=== PATIENT | male | born 1975 | race Caucasian/White ===

== ENCOUNTER 2022-08-06 21:23 | Inpatient (IN) ==
--- NOTE | 2022-08-06 22:00 | Emergency Department Note ---
Impression & Plan Suicidal ideation, Alcohol abuse, Hypokalemia, Hypertension ED Provider Note NAME: MARTHA MEJIA Jr AGE: 47 SEX: M : 1975 ARRIVES VIA: Walk-In INFORMANT: [Patient][family] ED PROVIDER(S): [Isai Trammell MD] CHIEF COMPLAINT: Mental health evaluation HISTORY OF PRESENT ILLNESS: Patient is a 47-year-old male who presents to the ED for a mental health evaluation. The patient has been feeling overwhelmed and depressed. He recently found out that he will eventually lose his vision. He feels helpless. He has had issues with his family, he feels his family no longer loves him. The patient typically drinks about 6 beers a day, he did have at least 6 today and feels slightly intoxicated with alcohol. He had an outburst today and threatened to kill himself as well as the dog. Patient did try to jump out of a vehicle at [address] way here, his grabbed his arm and kept him in the vehicle. The patient was started on Zoloft 3 weeks ago. This was added to his Effexor. He has not yet seen a psychiatrist. He has never been hospitalized for depression or anxiety. He is currently cooperative but does not feel he needs to stay in the hospital for mental health care. He believes he needs to care for his alcohol use. PMHx/PSHx: See Below SOCIAL HISTORY: See Below. PHYSICAL EXAM: GENERAL: Patient is in mild distress, anxious but cooperative HEENT: No acute trauma, normocephalic atraumatic, mucous membranes moist, no nasal congestion. NECK: No stridor, no adenopathy, no meningismus, trachea is midline. LUNGS: Clear to auscultation bilaterally, no wheeze, no rhonchi, breath sounds equal. HEART: Mildly tachycardic, regular rhythm, no murmurs. ABDOMEN: Soft, nontender, bowel sounds positive, no peritonitis. EXTREMITIES: No cyanosis or edema, full range of motion of all the joints without pain or difficulty, no signs for acute trauma. NEUROLOGIC: Oriented x 3, no acute motor or sensory deficits, no focal weakness. SKIN: No rash, no jaundice, no diaphoresis. Psychiatric: Cooperative, currently voluntary. Admits to making suicidal comments, admits to trying to get out of the moving car on the way here. DIFFERENTIAL DIAGNOSIS: Mood disorder, suicidality, psychosis, infection, hypoglycemia, electrolyte abnormalities, intracerebral event, toxicologic etiology, trauma, as well as other pathologies. EMERGENCY DEPARTMENT COURSE/PROCEDURES: Prior/Outside records reviewed: None MEDICAL DECISION MAKING: There is no leukocytosis or concerning anemia. There is a normal platelet count. Potassium slightly low at 3. No renal failure. No concerning liver enzyme elevation. The patient appears to be in a euthyroid state. Urinalysis does not show infection. Aspirin and Tylenol levels were undetectable. Urine tox was negative. Alcohol level was somewhat elevated at 81, this is consistent with his alcohol use. COVID test returned negative. On exam, the patient was anxious, he was voluntary. He admitted to some suicidal ideation. He was somewhat hypertensive. He carries a history of hypertension. Patient was felt medically clear. He was seen by psychiatry case management. Patient was given his typical nighttime meds orally. He was given oral potassium as well as some oral Ativan. The Ativan was given for anxiety. The patient has been accepted voluntarily to this [facility] psychiatric floor, 3 S. He has been cooperative during his ED stay. DISPOSITION: The patient is being hospitalized on this hospital's psychiatric floor, his presentation warrants the hospital stay. Past Med/Surg History Medical History Allergic rhinitis Hypertension REM sleep behavior disorder Severe obstructive sleep apnea Surgical History History of vasectomy Family History Other Cancer Diabetes Hypertension Prostate cancer Social History Smoking Status: Never smoker Preferred Language: Divehi marital status: Current Living Situation: Family current occupational status: employed Feels Safe at Home: Yes Gender Identity: Male Allergies Allergies Allergy/AdvReac Type Severity Reaction Status Date / Time Sulfa (Sulfonamide Allergy Unknown Rash Verified 08/06/22 22:57 Antibiotics) Home Meds Home Medications Medication Instructions Recorded Confirmed chlorthalidone 25 mg tablet 25 mg PO HS 03/23/19 08/06/22 enalapril maleate 20 mg tablet 20 mg PO HS 03/23/19 08/06/22 metoprolol succinate 25 mg 25 mg PO HS 03/23/19 08/06/22 tablet,extended release 24 hr venlafaxine 150 mg 150 mg PO HS 03/23/19 08/06/22 capsule,extended release 24 hr clonazepam 0.5 mg tablet (Klonopin) 0.5 mg PO HS 08/06/22 08/06/22 sertraline 50 mg tablet 50 mg PO HS 08/06/22 08/06/22 Results & Data (ED) Vital Signs Vital Signs - 24 hr 08/06/22 21:30 08/07/22 00:03 Temperature 36.7 C Temperature Source Temporal Artery Scan Pulse Rate 112 H Pulse Rate [Finger] 122 H Respiratory Rate 22 17 Respiratory Effort / Characteristics Non-Labored Spontaneous Non-Labored Spontaneous Respiratory Depth Normal Normal Blood Pressure 166/106 H Blood Pressure [Right Arm] 143/102 H Blood Pressure Mean 126 Blood Pressure Mean [Right Arm] 115 Blood Pressure Position Sitting Blood Pressure Position [Right Arm] Sitting Pulse Oximetry 98 99 Oxygen Delivery Method Room Air Room Air Sepsis Recent Fever Within 48 Hours No Sepsis New/Unexplained Change in Mental Status No Sepsis Action Taken by Nursing No Action Required Home Medications Current Medication List: was personally reviewed by me Laboratory Data Attestation: I reviewed the patient's lab results. 08/06/22 22:17 08/06/22 22:17 Lab Results 08/06/22 08/06/22 08/06/22 Range/Units 21:55 21:55 22:00 WBC (4.8-10.8) K/ul RBC (4.63-6.08) M/uL Hgb (14.0-18.0) g/dl Hct (40.1-51.0) % MCV (80.0-100.0) fL MCH (25.0-34.0) pg MCHC (32.0-36.0) g/dL RDW Std Deviation (36.4-46.3) fL RDW Coeff of Symone (11.5-14.5) % Plt Count (130-400) K/uL MPV (9.4-12.4) fL Immature Gran % (Auto) % Neut % (Auto) % Lymph % (Auto) % [place] % (Auto) % Eos % (Auto) % Baso % (Auto) % Neut # (Auto) (1.4-6.5) K/uL Lymph # (Auto) (1.2-3.4) K/uL [place] # (Auto) (0.24-0.82) K/uL Eos # (Auto) (0-0.50) K/uL Baso # (Auto) (0-0.2) K/uL Immature Gran # (Auto) (0.00-0.02) K/uL Sodium (136-145) mmol/L Potassium (3.5-5.1) mmol/L Chloride (98-107) mmol/L Carbon Dioxide (21-32) mmol/L Anion Gap (3-11) BUN (6-23) mg/dl Creatinine (0.6-1.4) mg/dl Est Cr Clr Drug Dosing ml/min Est GFR ( Amer) ml/min Est GFR (Non-Af Amer) ml/min BUN/Creatinine Ratio (10-20) Glucose (70-99(Fasting)) mg/dl Calcium (8.5-10.1) mg/dl Total Bilirubin (0.2-1.0) mg/dl AST (13-39) U/L ALT (7-52) U/L Alkaline Phosphatase (34-104) U/L Total Protein (6.0-8.3) gm/dl Albumin (3.4-5.0) gm/dl Globulin (2.5-4.0) gm/dl Albumin/Globulin Ratio (0.9-2) TSH (0.300-4.500) uIu/ml Urine Color Yellow Urine Appearance Clear (Clear) Urine pH 6.5 (4.5-7.5) Ur Specific [place] 1.004 (1.000-1.030) Urine Protein Negative (Negative) Urine Glucose (UA) Negative (Negative) Urine Ketones Negative (Negative) Urine Blood Negative (Negative) Urine Nitrite Negative (Negative) Urine Bilirubin Negative (Negative) Urine Urobilinogen Negative (Negative) Ur Leukocyte Esterase Negative (Negative) Salicylates (3.0-30) mg/dl Urine Opiates Screen Neg (Neg) Ur Methadone, Qual Neg (Neg) Acetaminophen (10-30) ug/ml Urine Barbiturates Neg (Neg) Ur Phencyclidine (PCP) Neg (Neg) U Amphetamin/Meth Scrn Neg (Neg) MDMA (Ecstasy) Screen Neg (Neg) U Benzodiazepines Scrn Neg (Neg) Ur Cocaine Metabolite Neg (Neg) U Marijuana (THC) Screen Neg (Neg) Ethyl Alcohol mg/dL (<10.0) mg/dl SARS-CoV-2, RNA, NAAT NEGATIVE (NEGATIVE) 08/06/22 08/06/22 08/06/22 Range/Units 22:17 22:17 22:17 WBC 5.62 (4.8-10.8) K/ul RBC 4.68 (4.63-6.08) M/uL Hgb 15.2 (14.0-18.0) g/dl Hct 41.9 (40.1-51.0) % MCV 89.5 (80.0-100.0) fL MCH 32.5 (25.0-34.0) pg MCHC 36.3 H (32.0-36.0) g/dL RDW Std Deviation 41.7 (36.4-46.3) fL RDW Coeff of Symone 12.7 (11.5-14.5) % Plt Count 222 (130-400) K/uL MPV 10.5 (9.4-12.4) fL Immature Gran % (Auto) 1.2 % Neut % (Auto) 66.4 % Lymph % (Auto) 21.9 % [place] % (Auto) 5.5 % Eos % (Auto) 3.4 % Baso % (Auto) 1.6 % Neut # (Auto) 3.73 (1.4-6.5) K/uL Lymph # (Auto) 1.23 (1.2-3.4) K/uL [place] # (Auto) 0.31 (0.24-0.82) K/uL Eos # (Auto) 0.19 (0-0.50) K/uL Baso # (Auto) 0.09 (0-0.2) K/uL Immature Gran # (Auto) 0.07 H (0.00-0.02) K/uL Sodium 136 (136-145) mmol/L Potassium 3.0 L (3.5-5.1) mmol/L Chloride 101 (98-107) mmol/L Carbon Dioxide 25 (21-32) mmol/L Anion Gap 10 (3-11) BUN 14 (6-23) mg/dl Creatinine 0.79 (0.6-1.4) mg/dl Est Cr Clr Drug Dosing 141.5 ml/min Est GFR ( Amer) 123.9 ml/min Est GFR (Non-Af Amer) 106.9 ml/min BUN/Creatinine Ratio 17.7 (10-20) Glucose 117 H (70-99(Fasting)) mg/dl Calcium 9.3 (8.5-10.1) mg/dl Total Bilirubin 0.5 (0.2-1.0) mg/dl AST 24 (13-39) U/L ALT 45 (7-52) U/L Alkaline Phosphatase 34 (34-104) U/L Total Protein 6.7 (6.0-8.3) gm/dl Albumin 4.4 (3.4-5.0) gm/dl Globulin 2.3 L (2.5-4.0) gm/dl Albumin/Globulin Ratio 1.9 (0.9-2) TSH 2.381 (0.300-4.500) uIu/ml Urine Color Urine Appearance (Clear) Urine pH (4.5-7.5) Ur Specific [place] (1.000-1.030) Urine Protein (Negative) Urine Glucose (UA) (Negative) Urine Ketones (Negative) Urine Blood (Negative) Urine Nitrite (Negative) Urine Bilirubin (Negative) Urine Urobilinogen (Negative) Ur Leukocyte Esterase (Negative) Salicylates (3.0-30) mg/dl Urine Opiates Screen (Neg) Ur Methadone, Qual (Neg) Acetaminophen (10-30) ug/ml Urine Barbiturates (Neg) Ur Phencyclidine (PCP) (Neg) U Amphetamin/Meth Scrn (Neg) MDMA (Ecstasy) Screen (Neg) U Benzodiazepines Scrn (Neg) Ur Cocaine Metabolite (Neg) U Marijuana (THC) Screen (Neg) Ethyl Alcohol mg/dL (<10.0) mg/dl SARS-CoV-2, RNA, NAAT (NEGATIVE) 08/06/22 08/06/22 Range/Units 22:17 22:17 WBC (4.8-10.8) K/ul RBC (4.63-6.08) M/uL Hgb (14.0-18.0) g/dl Hct (40.1-51.0) % MCV (80.0-100.0) fL MCH (25.0-34.0) pg MCHC (32.0-36.0) g/dL RDW Std Deviation (36.4-46.3) fL RDW Coeff of Symone (11.5-14.5) % Plt Count (130-400) K/uL MPV (9.4-12.4) fL Immature Gran % (Auto) % Neut % (Auto) % Lymph % (Auto) % [place] % (Auto) % Eos % (Auto) % Baso % (Auto) % Neut # (Auto) (1.4-6.5) K/uL Lymph # (Auto) (1.2-3.4) K/uL [place] # (Auto) (0.24-0.82) K/uL Eos # (Auto) (0-0.50) K/uL Baso # (Auto) (0-0.2) K/uL Immature Gran # (Auto) (0.00-0.02) K/uL Sodium (136-145) mmol/L Potassium (3.5-5.1) mmol/L Chloride (98-107) mmol/L Carbon Dioxide (21-32) mmol/L Anion Gap (3-11) BUN (6-23) mg/dl Creatinine (0.6-1.4) mg/dl Est Cr Clr Drug Dosing ml/min Est GFR ( Amer) ml/min Est GFR (Non-Af Amer) ml/min BUN/Creatinine Ratio (10-20) Glucose (70-99(Fasting)) mg/dl Calcium (8.5-10.1) mg/dl Total Bilirubin (0.2-1.0) mg/dl AST (13-39) U/L ALT (7-52) U/L Alkaline Phosphatase (34-104) U/L Total Protein (6.0-8.3) gm/dl Albumin (3.4-5.0) gm/dl Globulin (2.5-4.0) gm/dl Albumin/Globulin Ratio (0.9-2) TSH (0.300-4.500) uIu/ml Urine Color Urine Appearance (Clear) Urine pH (4.5-7.5) Ur Specific [place] (1.000-1.030) Urine Protein (Negative) Urine Glucose (UA) (Negative) Urine Ketones (Negative) Urine Blood (Negative) Urine Nitrite (Negative) Urine Bilirubin (Negative) Urine Urobilinogen (Negative) Ur Leukocyte Esterase (Negative) Salicylates < 3.0 L (3.0-30) mg/dl Urine Opiates Screen (Neg) Ur Methadone, Qual (Neg) Acetaminophen < 3 L (10-30) ug/ml Urine Barbiturates (Neg) Ur Phencyclidine (PCP) (Neg) U Amphetamin/Meth Scrn (Neg) MDMA (Ecstasy) Screen (Neg) U Benzodiazepines Scrn (Neg) Ur Cocaine Metabolite (Neg) U Marijuana (THC) Screen (Neg) Ethyl Alcohol mg/dL 81.8 H (<10.0) mg/dl SARS-CoV-2, RNA, NAAT (NEGATIVE) Administered Medications Discontinued Medications Chlorthalidone (Chlorthalidone 25 Mg Tab) 25 mg PO NOW STA Stop: 08/06/22 23:26 Last Admin: 08/07/22 00:02 Dose: 25 mg Documented By: CC Enalapril Maleate (Enalapril Maleate 5 Mg Tab) 20 mg PO NOW STA Stop: 08/06/22 23:26 Last Admin: 08/07/22 00:01 Dose: 20 mg Documented By: CC Lorazepam (Lorazepam 1 Mg Tab) 2 mg SL NOW STA Stop: 08/06/22 22:49 Last Admin: 08/06/22 23:13 Dose: 2 mg Documented By: CC Metoprolol Succinate (Metoprolol Succ 25mg Ext Rel Tab) 25 mg PO NOW STA Stop: 08/06/22 23:26 Last Admin: 08/06/22 23:58 Dose: 25 mg Documented By: CC Potassium Chloride (Potassium Chloride Crtab 20 Meq Tabcr) 40 meq PO NOW STA Stop: 08/06/22 23:16 Last Admin: 08/06/22 23:58 Dose: 40 meq Documented By: CC Sertraline HCl (Sertraline Hcl 50 Mg Tablet) 50 mg PO NOW ONE Stop: 08/06/22 23:26 Last Admin: 08/07/22 00:00 Dose: 50 mg Documented By: CC Venlafaxine HCl (Venlafaxine Hcl Xr 150 Mg Capxr) 150 mg PO NOW STA Stop: 08/06/22 22:50 Last Admin: 08/06/22 23:59 Dose: 150 mg Documented By: CC Discharge Plan Visit Data Chief Complaint: Mental Health Evaluation Stated Complaint: MENTAL HEALTH ASSESMENT ED Provider: Isai Trammell Discharge Problem: Suicidal ideation, Alcohol abuse, Hypokalemia, Hypertension Patient Disposition: Admitted As Inpatient Condition: Good Forms Stand Alone Forms: [facility], Suicide Prevention Resources Prescriptions Prescriptions: No Action chlorthalidone 25 mg tablet 25 mg PO HS enalapril maleate 20 mg tablet 20 mg PO HS metoprolol succinate 25 mg tablet extended release 24 hr 25 mg PO HS venlafaxine 150 mg capsule,extended release 24hr 150 mg PO HS sertraline 50 mg tablet 50 mg PO HS clonazepam [Klonopin] 0.5 mg tablet 0.5 mg PO HS Referrals Referrals: Lora Lo [Primary Care Provider] -
[2022-08-06 22:30] LABS: Appearance Urine Clear (Clear); Bilirubin Urine Negative (Negative); Blood Urine Negative (Negative); Color Urine Yellow; Glucose Urine UA Negative (Negative); Ketones Urine Negative (Negative); Leukocyte Esterase Urine Negative (Negative); Nitrite Urine Negative (Negative); Protein Urine Negative (Negative); Specific Gravity Urine 1.004 (1.000-1.030); Urobilinogen Urine Negative (Negative); pH Urine 6.5 (4.5-7.5)
[2022-08-06 22:48] LABS: Amphetamines+Metham, Urine Neg (Neg); Barbiturates, Urine Neg (Neg); Benzodiazepine, Urine Neg (Neg); Cocaine, Urine Neg (Neg); MDMA (Ecstacy), Urine Neg (Neg); Methadone, Urine Neg (Neg); Opiate, Urine Neg (Neg); Phencyclidine, Urine Neg (Neg)
[2022-08-06] MEDS ORDERED: LORazepam 1 MG TAB SL STA (22:48)
[2022-08-06] MEDS ORDERED: VENLAFAXINE HCL XR 150 MG CAPXR PO STA (22:49)
[2022-08-06 22:51] LABS: Basophils # (auto) 0.09 K/uL (0-0.2); Basophils % (auto) 1.6 %; Eosinophils # (auto) 0.19 K/uL (0-0.50); Eosinophils % (auto) 3.4 %; Hematocrit (blood only) 41.9 % (40.1-51.0); Hemoglobin 15.2 g/dl (14.0-18.0); Immature Granulocytes # (auto) 0.07 K/uL (0.00-0.02); Immature Granulocytes % (auto) 1.2 %; Lymphocytes # (auto) 1.23 K/uL (1.2-3.4); Lymphocytes % (auto) 21.9 %; Mean Corpuscular Hemoglobin 32.5 pg (25.0-34.0); Mean Corpuscular Hgb Conc 36.3 g/dL (32.0-36.0); Mean Corpuscular Volume 89.5 fL (80.0-100.0); Mean Platelet Volume 10.5 fL (9.4-12.4); Monocytes # (auto) 0.31 K/uL (0.24-0.82); Monocytes % (auto) 5.5 %; Neutrophils # (auto) 3.73 K/uL (1.4-6.5); Neutrophils % (auto) 66.4 %; Platelet Count 222 K/uL (130-400); RDW Coefficient of Variation 12.7 % (11.5-14.5); RDW Standard Deviation 41.7 fL (36.4-46.3); Red Blood Count 4.68 M/uL (4.63-6.08); White Blood Count 5.62 K/ul (4.8-10.8)
[2022-08-06 23:13] LABS: Albumin Globulin Ratio 1.9 (0.9-2); Albumin Level 4.4 gm/dl (3.4-5.0); BUN Creatinine Ratio 17.7 (10-20); Bilirubin,Total 0.5 mg/dl (0.2-1.0); Calcium 9.3 mg/dl (8.5-10.1); Creatinine Clr Calc Pharmacy 141.5 ml/min; Est GFR (African American) 123.9 ml/min; Est GFR (Non-African American) 106.9 ml/min; Globulin 2.3 gm/dl (2.5-4.0); Total Protein 6.7 gm/dl (6.0-8.3)
[2022-08-06] MEDS ORDERED: POTASSIUM CHLORIDE CRTAB 20 MEQ TABCR PO STA (23:15)
[2022-08-06 23:19] LABS: Acetaminophen < 3 ug/ml (10-30); Salicylate < 3.0 mg/dl (3.0-30)
[2022-08-06] MEDS ORDERED: SERTRALINE HCL 50 MG TABLET PO ONE (23:25)
[2022-08-06] MEDS ORDERED: METOPROLOL SUCC 25MG EXT REL TAB PO STA (23:25)
[2022-08-06] MEDS ORDERED: CHLORTHALIDONE 25 MG TAB PO STA (23:25)
[2022-08-06] MEDS ORDERED: ENALAPRIL MALEATE 5 MG TAB PO STA (23:25)
[2022-08-07] MEDS ORDERED: SODIUM CHLORIDE 0.65% NA SOLN 45 ML (OCEAN) PRN (02:08)
[2022-08-07] MEDS ORDERED: ACETAMINOPHEN 325 MG TAB PO PRN (02:08)
[2022-08-07] MEDS ORDERED: BISMUTH SUBSALICYLATE LIQD 236 ML PO PRN (02:08)
[2022-08-07] MEDS ORDERED: hydrOXYzine HCl 25 MG TAB PO PRN (02:08)
[2022-08-07] MEDS ORDERED: MAGNESIUM HYDROXIDE SUSP 30 ML UDC PO PRN (02:08)
[2022-08-07] MEDS ORDERED: ALUMINUM/MAGNESIUM SUSP 30 ML UDC PO PRN (02:08)
[2022-08-07] MEDS ORDERED: Ativan PO Alcohol Withdrawal--Active Protocol PO PRN ×2 (02:08→11:11)
[2022-08-07] MEDS ORDERED: LORAZEPAM 1MG TAB ACTIVE PROTOCOL PO PRN (03:00)
[2022-08-07] MEDS ORDERED: LORAZEPAM 1MG TAB AT RISK PROTOCOL PO PRN (03:00)
[2022-08-07] MEDS ORDERED: THIAMINE HCL 100 MG TAB PO SCH (09:00)
[2022-08-07] MEDS ORDERED: FOLIC ACID 1 MG TAB PO SCH (09:00)
[2022-08-07] MEDS ORDERED: LORazepam 1 MG TAB PO PRN ×3 (11:11)
[2022-08-07] MEDS ORDERED: LORazepam 1 MG TAB ONE (11:16)
[2022-08-07] MEDS ORDERED: cloNIDine HCL 0.1 MG TAB PO ONE (13:53)
[2022-08-07] MEDS: SODIUM CHLORIDE 5% OP SOLN 15 ML BTL OP SCH ×2 (14:08→21:18)
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
[2022-08-07] MEDS ORDERED: VENLAFAXINE HCL XR 150 MG CAPXR PO SCH (17:15)
[2022-08-07] MEDS: clonazePAM 0.5 MG TAB PO SCH (21:16)
[2022-08-07] MEDS: ENALAPRIL MALEATE 10 MG TAB PO SCH (21:17)
[2022-08-07] MEDS: CHLORTHALIDONE 25 MG TAB PO SCH (21:17)
[2022-08-07] MEDS ORDERED: METOPROLOL SUCC 25MG EXT REL TAB PO SCH (22:00)
[2022-08-08] MEDS: SODIUM CHLORIDE 5% OP SOLN 15 ML BTL OP SCH ×3 (08:53→21:38)
[2022-08-08] MEDS: hydrOXYzine HCl 25 MG TAB PO PRN (10:20)
[2022-08-08] MEDS ORDERED: METOPROLOL TARTRATE 25 MG TAB PO ONE (16:27)
--- NOTE | 2022-08-08 16:34 | Psychiatric Progress Note ---
Date of Service August 08, 2022 Impression / Recommendations Impression 47 yo male with hx of sleep disorders, anxiety, self-medicating with ETOH, likely dependence, presents denying SI following significant outburst at home with threats to harm self/jump from car. Behaviors seem to have escalated during period of increased Etoh use and addition of SSRI which could suggest disinhibition. reports significant worsening of his condition when started Zoloft. 08/08/2022: improved sleep, only tachy/hypertension (1) Major depression: (2) Alcohol abuse: (3) Hypertension: (4) REM sleep behavior disorder: (5) Periodic limb movement disorder: (6) Severe obstructive sleep apnea: Plan 08/08/2022: patient agrees to titrate metoprolol as beta blockers as a class helpful for anxiety/tachy, continue shift Effexor XR toward lunch then am. 08/07/2022: The patient was admitted to the [facility] ([facility]) on q15 min checks (behavioral with suicide precautions) for safety. The patient will participate in group, recreational, and milieu therapies and will be offered additional individual and family sessions as clinically appropriate. K+ was repleted in ED. AWSS procotol with prn Ativan, consider Neurontin loading. Patient has HTN at baseline and doesn't appear to be progressing with withdrawal, some improvement following 1 time dose of clonidine. Will continue Klonopin as for sleep related disorder though expressed to patient that I would suggest trial of shifting his dose of Effexor XR as antidepressants can disrupt sleep stages. He was agreeable to this, hasn't taken higher dose of Effexor and is ambivalent re: it given significant discontinuation syndrome. He is agreeable to referral to outpatient dual dx IOP. Suicide Risk Level Suicide Risk Level: Moderate (q15 min suicide checks) Risk Factors Assessment Male: Yes : Yes Do You Have Access To A Gun?: Yes (has guns in safe, but there is access) Health Problems: Yes Mental Health Diagnoses: Yes Substance Use Disorders: Yes Previous Attempt: No Previous Psychiatric Hospitalization: No Protective Factors Assessment : Yes Responsible for Young Children: Yes Employed: No (unable to work d/t vision loss) Supportive Family: Yes Interval History Identifying Information MARTHA MEJIA is a 47-year-old M who currently lives in [place], no prior admissions, and was admitted on 08/07/22 02:08 on a 201 voluntary commitment for threats to harm self/others. Chief Complaint "yeah i feel internally anxious but not like I'm withdrawaling". Review of Systems Sleep Information Total Hours of Sleep: 8.25 Sleep Comments: Admitted overnight Meal Information Percent Meal Consumed - Breakfast: 100 Percent Meal Consumed - Lunch: 100 Percent Meal Consumed - Dinner: 100 Subjective Subjective Patient was seen & assessed and interval progress reviewed with treatment team. BP is chronically elevated at baseline. Still monitoring with AWSS. He reports sleeping very well last pm, even without CPAP. He is reading rather than therapeutic rec this pm but milieu is predominately young and female. He reports that groups are going well regardless. He is appreciative of care. Physical Exam Psychiatric Orientation: alert and oriented x 3 Apperance: appropriately dressed and appropriately groomed Eye Contact: good eye contact Motor Behavior: no abnormal motor movements Speech: normal rate/rhythm/volume of speech Affect: + depressed affect Mood: + depressed mood Thought Process: goal directed thought process Thought Content: reality based without delusions Suicidal Thoughts: denies suicidal thoughts Homicidal Thoughts: denies homicidal thoughts Hallucinations: no auditory hallucinations and no visual hallucinations Cognition: attention grossly intact and language grossly intact Estimated Intelligence: consistent with education level Insight: + limited insight Judgement: + limited judgement Vital Signs (Past 24 Hours) Last Vital Signs Temp 37.2 C 08/08/22 14:26 Pulse 115 H 08/08/22 14:26 Resp 18 08/08/22 14:26 BP 145/101 H 08/08/22 14:26 Pulse Ox 94 08/08/22 14:26 O2 Del Method 08/08/22 14:26 Results & Data ([facility]) Current Inpatient Medications Current Inpatient Medications: Current Inpatient Medications Acetaminophen (Acetaminophen 325 Mg Tab) 650 mg PO Q4H PRN PRN Reason: Headache or Minor Fever Stop: 09/06/22 02:07 Al Hydrox/Mg Hydrox/Simethicone (Aluminum/Magnesium Susp 30 Ml Udc) 30 ml PO Q4H PRN PRN Reason: GI Upset Stop: 09/06/22 02:07 Bismuth Subsalicylate (Bismuth Subsalicylate Liqd 236 Ml) 15 ml PO PRN PRN PRN Reason: Loose Stool Stop: 09/06/22 02:07 Chlorthalidone (Chlorthalidone 25 Mg Tab) 50 mg PO HS ALBIN Stop: 09/06/22 21:59 Last Admin: 08/07/22 21:17 Dose: 50 mg Clonazepam (Clonazepam 0.5 Mg Tab) 0.5 mg PO HS ALBIN Stop: 09/06/22 21:59 Last Admin: 08/07/22 21:16 Dose: 0.5 mg Enalapril Maleate (Enalapril Maleate 10 Mg Tab) 20 mg PO HS ALBIN Stop: 09/06/22 21:59 Last Admin: 08/07/22 21:17 Dose: 20 mg Hydroxyzine HCl (Hydroxyzine Hcl 25 Mg Tab) 50 mg PO HSZ PRN PRN Reason: Insomnia Stop: 09/06/22 02:07 Hydroxyzine HCl (Hydroxyzine Hcl 25 Mg Tab) 25 mg PO Q4H PRN PRN Reason: Anxiety Stop: 09/06/22 02:07 Last Admin: 08/08/22 10:20 Dose: 25 mg Lorazepam (Lorazepam 1mg Tab Active Protocol) 1 mg PO UD PRN; Protocol PRN Reason: symptoms of alcohol withdrawal Stop: 09/06/22 02:59 Last Admin: 08/07/22 17:52 Dose: 1 mg Lorazepam (Lorazepam 1 Mg Tab) 1 mg PO UD PRN; Protocol PRN Reason: EtOH Withdrawal AWSS Score 6,7 Stop: 09/06/22 11:10 Lorazepam (Lorazepam 1 Mg Tab) 3 mg PO ONCE PRN; Protocol PRN Reason: EtOH Withdrawal AWSS Score 10 & above Lorazepam (Lorazepam 1 Mg Tab) 2 mg PO UD PRN; Protocol PRN Reason: EtOH Withdrawal AWSS Score 8,9 Stop: 09/06/22 11:10 Last Admin: 08/07/22 11:20 Dose: 2 mg Magnesium Hydroxide (Magnesium Hydroxide Susp 30 Ml Udc) 30 ml PO DAILY PRN PRN Reason: Constipation Stop: 09/06/22 02:07 Metoprolol Succinate (Metoprolol Succ 50mg Ext Rel Tab) 50 mg PO HS ALBIN Stop: 09/07/22 21:59 Sodium Chloride (Sodium Chloride 0.65% Na Soln 45 Ml ([place])) 1 - 2 sprays NA PRN PRN PRN Reason: Nasal Dryness/Congestion Stop: 02/18/23 02:07 Sodium Chloride (Sodium Chloride 5% Op Soln 15 Ml Btl) 1 drops OP TID ALBIN Stop: 09/06/22 13:59 Last Admin: 08/08/22 14:19 Dose: 1 drops Venlafaxine HCl (Venlafaxine Hcl Xr 150 Mg Capxr) 150 mg PO DAILYBL ALBIN Stop: 09/07/22 16:29 Mental Health & Subst Abuse Tx Psychiatrist Name of Psychiatrist: Rosy Ramos PA-C Psychiatrist's Date Of Appointment With Psychiatric Provider: 08/28/2022 Time of Appointment with Psychiatrist: 12:45pm Psychiatric Appointment Comment: 1950 Therapist Name of Therapist: [facility] The[facility]'s Therapy Appointment Comment: [address] [facility], [place] [address] Reading Instructor Name of Reading Instructor: None Post Discharge Appointments Primary Care Physician Name Of Family Doctor/PCP: [facility] - [facility] Time of Appointment with PCP: 8:45 AM Provider Appointment Comment: [id number], [place] [address] Contact Information Discharge Discharge Address: [facility] [address], [place] [address] (1) Hypertension Hypertension type: unspecified Qualified Code(s): I10 - Essential (primary) hypertension
[2022-08-08] MEDS: VENLAFAXINE HCL XR 150 MG CAPXR PO SCH (17:06)
[2022-08-08] MEDS: ENALAPRIL MALEATE 10 MG TAB PO SCH (21:34)
[2022-08-08] MEDS: METOPROLOL SUCC 50MG EXT REL TAB PO SCH (21:34)
[2022-08-08] MEDS: CHLORTHALIDONE 25 MG TAB PO SCH (21:35)
[2022-08-08] MEDS: clonazePAM 0.5 MG TAB PO SCH (21:35)
--- NOTE | 2022-08-09 07:30 | Psychiatric Progress Note ---
Date of Service August 09, 2022 Impression / Recommendations Impression 47 yo male with hx of sleep disorders, anxiety, self-medicating with ETOH, likely dependence, presents denying SI following significant outburst at home with threats to harm self/jump from car. Behaviors seem to have escalated during period of increased Etoh use and addition of SSRI which could suggest disinhibition. reports significant worsening of his condition when started Zoloft. 08/09/2022: improving (1) Major depression: (2) Alcohol abuse: (3) Hypertension: (4) REM sleep behavior disorder: (5) Periodic limb movement disorder: (6) Severe obstructive sleep apnea: Plan 08/09/2022: continue supportive counseling around ETOH use, he feels he can stop when he wants and plans to abstain on discharge. No criteria for rehab. BP improved with metoprolol titration. Continue shifting Effexor XR to am, could be converted to Pristiq as outpatient (non formulary) if ongoing concerns about discontinuation. 08/08/2022: patient agrees to titrate metoprolol as beta blockers as a class helpful for anxiety/tachy, continue shift Effexor XR toward lunch then am. 08/07/2022: The patient was admitted to the [facility] on q15 min checks (behavioral with suicide precautions) for safety. The patient will participate in group, recreational, and milieu therapies and will be offered additional individual and family sessions as clinically appropriate. K+ was repleted in ED. AWSS procotol with prn Ativan, consider Neurontin loading. Patient has HTN at baseline and doesn't appear to be progressing with withdrawal, some improvement following 1 time dose of clonidine. Will continue Klonopin as for sleep related disorder though expressed to patient that I would suggest trial of shifting his dose of Effexor XR as ant idepressants can disrupt sleep stages. He was agreeable to this, hasn't taken higher dose of Effexor and is ambivalent re: it given significant discontinuation syndrome. He is agreeable to referral to outpatient dual dx IOP. Suicide Risk Level Suicide Risk Level: Moderate (q15 min suicide checks) Risk Factors Assessment Male: Yes : Yes Do You Have Access To A Gun?: Yes (has guns in safe, but there is access) Health Problems: Yes Mental Health Diagnoses: Yes Substance Use Disorders: Yes Previous Attempt: No Previous Psychiatric Hospitalization: No Protective Factors Assessment : Yes Responsible for Young Children: Yes Employed: No (unable to work d/t vision loss) Supportive Family: Yes Interval History Identifying Information MARTHA MEJIA is a 47-year-old M who currently lives in [place], no prior admissions, and was admitted on 08/07/22 02:08 on a 201 voluntary commitment for threats to harm self/others. Chief Complaint "I want to get back on a routine". Review of Systems Sleep Information Total Hours of Sleep: 6 Meal Information Percent Meal Consumed - Breakfast: 100 Percent Meal Consumed - Lunch: 100 Percent Meal Consumed - Dinner: 100 Subjective Subjective Patient was seen & assessed and interval progress reviewed with nursing and social work. Met with patient and social services analyst following family meeting. He continues to deny SI and states that daughter's ADHD is a stressor and expressed interest in family in addition to individual therapy. Accepting that family currently on skiing trip, intermittent periods of anxiety but denies withdrawal and rates mood as 5/10 today. Sleep is fair, improved compared to home and BP/P improved. Physical Exam Psychiatric Orientation: alert and oriented x 3 Apperance: appropriately dressed and appropriately groomed Eye Contact: good eye contact Motor Behavior: no abnormal motor movements Speech: normal rate/rhythm/volume of speech Affect: + depressed affect Mood: + depressed mood Thought Process: goal directed thought process Thought Content: reality based without delusions Suicidal Thoughts: denies suicidal thoughts Homicidal Thoughts: denies homicidal thoughts Hallucinations: no auditory hallucinations and no visual hallucinations Cognition: attention grossly intact and language grossly intact Estimated Intelligence: consistent with education level Insight: + fair insight Judgement: + limited judgement Vital Signs (Past 24 Hours) Last Vital Signs Temp 36.2 C L 08/09/22 06:00 Pulse 89 08/09/22 06:00 Resp 18 08/09/22 06:00 BP 128/86 08/09/22 06:50 Pulse Ox 97 08/09/22 06:00 O2 Del Method 08/09/22 06:00 Results & Data ([facility]) Current Inpatient Medications Current Inpatient Medications: Current Inpatient Medications Acetaminophen (Acetaminophen 325 Mg Tab) 650 mg PO Q4H PRN PRN Reason: Headache or Minor Fever Stop: 09/06/22 02:07 Al Hydrox/Mg Hydrox/Simethicone (Aluminum/Magnesium Susp 30 Ml Udc) 30 ml PO Q4H PRN PRN Reason: GI Upset Stop: 09/06/22 02:07 Bismuth Subsalicylate (Bismuth Subsalicylate Liqd 236 Ml) 15 ml PO PRN PRN PRN Reason: Loose Stool Stop: 09/06/22 02:07 Chlorthalidone (Chlorthalidone 25 Mg Tab) 50 mg PO HS ALBIN Stop: 09/06/22 21:59 Last Admin: 08/08/22 21:35 Dose: 50 mg Clonazepam (Clonazepam 0.5 Mg Tab) 0.5 mg PO HS ALBIN Stop: 09/06/22 21:59 Last Admin: 08/08/22 21:35 Dose: 0.5 mg Enalapril Maleate (Enalapril Maleate 10 Mg Tab) 20 mg PO HS ALBIN Stop: 09/06/22 21:59 Last Admin: 08/08/22 21:34 Dose: 20 mg Hydroxyzine HCl (Hydroxyzine Hcl 25 Mg Tab) 50 mg PO HSZ PRN PRN Reason: Insomnia Stop: 09/06/22 02:07 Hydroxyzine HCl (Hydroxyzine Hcl 25 Mg Tab) 25 mg PO Q4H PRN PRN Reason: Anxiety Stop: 09/06/22 02:07 Last Admin: 08/08/22 10:20 Dose: 25 mg Lorazepam (Lorazepam 1mg Tab Active Protocol) 1 mg PO UD PRN; Protocol PRN Reason: symptoms of alcohol withdrawal Stop: 09/06/22 02:59 Last Admin: 08/07/22 17:52 Dose: 1 mg Lorazepam (Lorazepam 1 Mg Tab) 1 mg PO UD PRN; Protocol PRN Reason: EtOH Withdrawal AWSS Score 6,7 Stop: 09/06/22 11:10 Lorazepam (Lorazepam 1 Mg Tab) 3 mg PO ONCE PRN; Protocol PRN Reason: EtOH Withdrawal AWSS Score 10 & above Lorazepam (Lorazepam 1 Mg Tab) 2 mg PO UD PRN; Protocol PRN Reason: EtOH Withdrawal AWSS Score 8,9 Stop: 09/06/22 11:10 Last Admin: 08/07/22 11:20 Dose: 2 mg Magnesium Hydroxide (Magnesium Hydroxide Susp 30 Ml Udc) 30 ml PO DAILY PRN PRN Reason: Constipation Stop: 09/06/22 02:07 Metoprolol Succinate (Metoprolol Succ 50mg Ext Rel Tab) 50 mg PO HS ALBIN Stop: 09/07/22 21:59 Last Admin: 08/08/22 21:34 Dose: 50 mg Sodium Chloride (Sodium Chloride 0.65% Na Soln 45 Ml (Garten)) 1 - 2 sprays NA PRN PRN PRN Reason: Nasal Dryness/Congestion Stop: 09/06/22 02:07 Sodium Chloride (Sodium Chloride 5% Op Soln 15 Ml Btl) 1 drops OP TID ALBIN Stop: 09/06/22 13:59 Last Admin: 08/08/22 21:38 Dose: 1 drops Venlafaxine HCl (Venlafaxine Hcl Xr 150 Mg Capxr) 150 mg PO DAILYBL ALBIN Stop: 09/07/22 16:29 Last Admin: 08/08/22 17:06 Dose: 150 mg Mental Health & Subst Abuse Tx Psychiatrist Name of Psychiatrist: Rosy Ramos PA-C Psychiatrist's Date Of Appointment With Psychiatric Provider: 08/28/2022 Time of Appointment with Psychiatrist: 12:45pm Psychiatric Appointment Comment: 1950 Therapist Name of Therapist: [facility] Therapist's Therapy Appointment Comment: [address] , [place] [address] Crochet Beader Name of Crochet Beader: None Post Discharge Appointments Primary Care Physician Name Of Family Doctor/PCP: [facility] - Dr. Lo Primary [facility] Time of Appointment with PCP: 8:45 AM Provider Appointment Comment: [id number], [place] [address] Contact Information Discharge Discharge Address: [facility] [address], [place] [id number] (1) Hypertension Hypertension type: unspecified Qualified Code(s): I10 - Essential (primary) hypertension
[2022-08-09] MEDS: SODIUM CHLORIDE 5% OP SOLN 15 ML BTL OP SCH ×3 (09:16→20:59)
[2022-08-09] MEDS: VENLAFAXINE HCL XR 150 MG CAPXR PO SCH (12:20)
[2022-08-09] MEDS: CHLORTHALIDONE 25 MG TAB PO SCH (21:00)
[2022-08-09] MEDS: clonazePAM 0.5 MG TAB PO SCH (21:00)
[2022-08-09] MEDS: METOPROLOL SUCC 50MG EXT REL TAB PO SCH (21:01)
[2022-08-09] MEDS: ENALAPRIL MALEATE 10 MG TAB PO SCH (21:01)
[2022-08-10] MEDS: hydrOXYzine HCl 25 MG TAB PO PRN (03:51)
[2022-08-10] MEDS: VENLAFAXINE HCL XR 150 MG CAPXR PO SCH (09:25)
[2022-08-10] MEDS: SODIUM CHLORIDE 5% OP SOLN 15 ML BTL OP SCH ×3 (09:25→20:52)
--- NOTE | 2022-08-10 14:08 | Psychiatric Progress Note ---
Date of Service August 10, 2022 Impression / Recommendations Impression 47 yo male with hx of sleep disorders, anxiety, self-medicating with ETOH, likely dependence, presents denying SI following significant outburst at home with threats to harm self/jump from car. Behaviors seem to have escalated during period of increased Etoh use and addition of SSRI which could suggest disinhibition. reports significant worsening of his condition when started Zoloft. 08/10/2022: Reviewed that Effexor XR can contribute to HTN, best to reassess after discharge when resuming CPAP and exercise. He wants to avoid napping during day. His HTN predates his Effexor as on meds since age 21, recognizes anxiety as a contributing factor. sleep was better with higher dose of benzo (getting Ativan prn) so discussed Klonopin 1 mg hs, risks/benefits reviewed given that can worsen apnea. (1) Major depression: (2) Alcohol abuse: (3) Hypertension: (4) REM sleep behavior disorder: (5) Periodic limb movement disorder: (6) Severe obstructive sleep apnea: Plan 08/10/2022: needs family and/or couples therapy around parenting, possible CBTi referral. Klonopin 1 mg trial for REM sleep disorder/ongoing anxiety and sleep disruptions. Effexor XR now in am to also assist sleep architecture. Consideration for Pristiq on an outpatient basis. 08/09/2022: continue supportive counseling around ETOH use, he feels he can stop when he wants and plans to abstain on discharge. No criteria for rehab. BP improved with metoprolol titration. Continue shifting Effexor XR to am, could be converted to Pristiq as outpatient (non formulary) if ongoing concerns about discontinuation. 08/08/2022: patient agrees to titrate metoprolol as beta blockers as a class helpful for anxiety/tachy, continue shift Effexor XR toward lunch then am. 08/07/2022: The patient was admitted to [facility] ([facility] inpatient mental [facility]) on q15 min checks (behavioral with suicide precautions) for safety. The patient will participate in group, recreational, and milieu therapies and will be offered additional individual and family sessions as clinically appropriate. K+ was repleted in ED. AWSS procotol with prn Ativan, consider Neurontin loading. Patient has HTN at baseline and doesn't appear to be progressing with withdrawal, some improvement following 1 time dose of clonidine. Will continue Klonopin as for sleep related disorder though expressed to patient that I would suggest trial of shifting his dose of Effexor XR as antidepressants can disrupt sleep stages. He was agreeable to this, hasn't taken higher dose of Effexor and is ambivalent re: it given significant discontinuation syndrome. He is agreeable to referral to outpatient dual dx IOP. Suicide Risk Level Suicide Risk Level: Moderate (q15 min suicide checks) Risk Factors Assessment Male: Yes : Yes Do You Have Access To A Gun?: Yes (has guns in safe, but there is access) Health Problems: Yes Mental Health Diagnoses: Yes Substance Use Disorders: Yes Previous Attempt: No Previous Psychiatric Hospitalization: No Protective Factors Assessment : Yes Responsible for Young Children: Yes Employed: No (unable to work d/t vision loss) Supportive Family: Yes Interval History Identifying Information MARTHA MEJIA is a 47-year-old M who currently lives in [place], no prior admissions, and was admitted on 08/07/22 02:08 on a 201 voluntary commitment for threats to harm self/others. Chief Complaint "I realize when I get angry it's like my dad growing up". Review of Systems Sleep Information Total Hours of Sleep: 7 Sleep Comments: Admitted overnight Meal Information Percent Meal Consumed - Breakfast: 100 Percent Meal Consumed - Lunch: 75 Percent Meal Consumed - Dinner: 50 Subjective Subjective Patient was seen & assessed and interval progress reviewed with nursing and social work. Continues to have periods of increased anxiety, worried about parenting daughter on discharge. Patient feels guitly for issues with anger control and this makes it harder to set appropriate limits and carry out any routine. Discussed his sleep issues/blood pressures, numbers likely higher here due to inability to use CPAP. Discussed adjustments that were made and need for follow up with PCP. He plans to resume exercise. Physical Exam Psychiatric Orientation: alert and oriented x 3 Apperance: appropriately dressed and appropriately groomed Eye Contact: good eye contact Motor Behavior: no abnormal motor movements Speech: normal rate/rhythm/volume of speech Affect: + depressed affect Mood: + depressed mood Thought Process: goal directed thought process Thought Content: reality based without delusions Suicidal Thoughts: denies suicidal thoughts Homicidal Thoughts: denies homicidal thoughts Hallucinations: no auditory hallucinations and no visual hallucinations Cognition: attention grossly intact and language grossly intact Estimated Intelligence: consistent with education level Insight: + limited insight and + fair insight Judgement: + limited judgement Vital Signs (Past 24 Hours) Last Vital Signs Temp 36.7 C 08/10/22 06:00 Pulse 18 L 08/10/22 06:00 Resp 18 08/10/22 06:00 BP 130/88 08/10/22 06:40 Pulse Ox 99 08/10/22 06:00 O2 Del Method 08/10/22 06:00 Results & Data ([facility]) Current Inpatient Medications Current Inpatient Medications: Current Inpatient Medications Acetaminophen (Acetaminophen 325 Mg Tab) 650 mg PO Q4H PRN PRN Reason: Headache or Minor Fever Stop: 09/06/22 02:07 Al Hydrox/Mg Hydrox/Simethicone (Aluminum/Magnesium Susp 30 Ml Udc) 30 ml PO Q4H PRN PRN Reason: GI Upset Stop: 09/06/22 02:07 Bismuth Subsalicylate (Bismuth Subsalicylate Liqd 236 Ml) 15 ml PO PRN PRN PRN Reason: Loose Stool Stop: 09/06/22 02:07 Chlorthalidone (Chlorthalidone 25 Mg Tab) 50 mg PO HS [facility] Stop: 09/06/22 21:59 Last Admin: 08/09/22 21:00 Dose: 50 mg Clonazepam (Clonazepam 1 Mg Tab) 1 mg PO HS [facility] Stop: 09/09/22 21:59 Enalapril Maleate (Enalapril Maleate 10 Mg Tab) 20 mg PO HS [facility] Stop: 09/06/22 21:59 Last Admin: 08/09/22 21:01 Dose: 20 mg Hydroxyzine HCl (Hydroxyzine Hcl 25 Mg Tab) 50 mg PO HSZ PRN PRN Reason: Insomnia Stop: 09/06/22 02:07 Hydroxyzine HCl (Hydroxyzine Hcl 25 Mg Tab) 25 mg PO Q4H PRN PRN Reason: Anxiety Stop: 09/06/22 02:07 Last Admin: 08/10/22 03:51 Dose: 25 mg Magnesium Hydroxide (Magnesium Hydroxide Susp 30 Ml Udc) 30 ml PO DAILY PRN PRN Reason: Constipation Stop: 09/06/22 02:07 Metoprolol Succinate (Metoprolol Succ 50mg Ext Rel Tab) 50 mg PO HS ALBIN Stop: 09/07/22 21:59 Last Admin: 08/09/22 21:01 Dose: 50 mg Sodium Chloride (Sodium Chloride 0.65% Na Soln 45 Ml (Summers)) 1 - 2 sprays NA PRN PRN PRN Reason: Nasal Dryness/Congestion Stop: 09/06/22 02:07 Sodium Chloride (Sodium Chloride 5% Op Soln 15 Ml Btl) 1 drops OP TID ALBIN Stop: 09/06/22 13:59 Last Admin: 08/10/22 09:25 Dose: 1 drops Venlafaxine HCl (Venlafaxine Hcl Xr 150 Mg Capxr) 150 mg PO DAILY ALBIN Stop: 09/09/22 08:59 Last Admin: 08/10/22 09:25 Dose: 150 mg Mental Health & Subst Abuse Tx Psychiatrist Name of Psychiatrist: Rosy SANTACRUZC Psychiatrist's Date Of Appointment With Psychiatric Provider: 08/28/2022 Time of Appointment with Psychiatrist: 12:45pm Psychiatric Appointment Comment: 1950 Therapist Name of Therapist: [facility] Therapist's Therapy Appointment Comment: [address], [place] [address] Biomass Facilitator Name of Biomass Facilitator: None Post Discharge Appointments Primary Care Physician Name Of Family Doctor/PCP: [facility] - Dr. Lo Primary [facility] Time of Appointment with PCP: 8:45 AM Provider Appointment Comment: [address], [place] [address] Contact Information Discharge Discharge Address: [facility] [address], [place] [address] (1) Hypertension Hypertension type: unspecified Qualified Code(s): I10 - Essential (primary) hypertension
[2022-08-10] MEDS: ENALAPRIL MALEATE 10 MG TAB PO SCH (20:52)
[2022-08-10] MEDS: METOPROLOL SUCC 50MG EXT REL TAB PO SCH (20:53)
[2022-08-10] MEDS: CHLORTHALIDONE 25 MG TAB PO SCH (20:53)
[2022-08-10] MEDS ORDERED: clonazePAM 1 MG TAB PO SCH (22:00)
[2022-08-11] MEDS: SODIUM CHLORIDE 5% OP SOLN 15 ML BTL OP SCH (08:33)
[2022-08-11] MEDS: VENLAFAXINE HCL XR 150 MG CAPXR PO SCH (08:33)
--- NOTE | 2022-08-11 10:20 | Discharge Summary ---
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 He has had a difficult adjustment to being at home as much of his personal identity is tied to his usefulness at work and being a provider for his family. He recently found out that he has 2 degenerative eye conditions, 1 of which is related to a Lasiq surgery that he felt pressured to have in the first place. His sight is likely to worsen si gnficantly within 10 years so he is unsure how much longer he can work in his field and feels pressured by his to look for work. He feels short at home, particularly with his 13 yo daughter who has a strong willed personality and needs alot of redirection around her ADHD. His son recently wrecked his new car and they've had to set limits on his driving which is also creating tension in the home. The "last straw" was the dog acting up and nipping his finger. In the context of an argument about his daughter leaving the dog back in the house he threatened to kill himself and the dog. It should be noted that he has been on Effexor XR for "maybe 17 years" and Zoloft was added a few weeks ago. Since then he has had anger outbursts (including punching a wall) that he does not necessarily attribute to the medication. He did not want to come to the hospital with his , he just wanted to puruse outpatient therapy but it's difficult to access and he has also been drinking more regularly. In that context he repeatedly tried to open the car door, "so she'd it disaster recovery manager." Currently admitting to a 6 pack a day. Admits that he uses alcohol to cope but denies physiologic dependence or hx of withdrawal. His blood pressure issues are chronic and otherwise denies withdrawal at this time. He did stop amlodipine recently due to edema so hard to know his baseline. He was stressed and tearful during the assessment. Denies irasema. Denies financial worries and got defensive when discussed moving to a smaller home. He is admittedly jealous of his volunteering at the homeless intermediate a few nights a week as he feels he never "gets a break from the kids." Physical Exam Psychiatric See admission H&P and DOD assessment. Vital Signs (Past 24 Hours) Last Vital Signs Temp 36.6 C 08/11/22 06:00 Pulse 90 08/11/22 06:00 Resp 18 08/11/22 06:00 BP 142/92 H 08/11/22 06:00 Pulse Ox 96 08/11/22 06:00 O2 Del Method 08/11/22 06:00 Principal Diagnosis major depressive disorder with anxious distress Psychiatric Data See daily stay summary. In short, safety was maintained and the patient was cooperative with care. Medication changes included discontinuation of Zoloft (which is now listed as adverse reaction), Ativan prn for anxiety/withdrawal (EToh), and shifting of Effexor XR to am dosing given other sleep disorders. Th taylor tolerated this well. He was not able to use CPAP on the unit due to safety protocols but sleep was improved compared to home due to abstincence from Etoh, shifting of antidepressant dosing, etc. After significant mariel around abstaining from EToh and Klonopin controlled substance, adjusted to 1 mg hs for REM sleep disorder/restless legs. He understands that this may be a temporary measure and will be addressed at Sleep med appointment. After resuming CPAP at home, if daytime fatigue remains an issue he may be a candidate for Provigil. He is seeing an airfield operations specialist and agreed to continue to review his medication list with them. A family session was held with the patient's and teenage children and safety plan was completed prior to discharge. it was confirmed that removed guns and remaining alcohol from the home prior to discharge. Andry identified his teenage daughter's ADHD and associated behavioral issues as a significant source of stress. He identified his drinking/anger outbursts as a source of guilt given his experiences as a child. Family and/or couples therapy is encouraged. He agrees to follow up with his PCP re: his blood pressure, which does seem very reactive to his anxiety. Effexor XR may not be ideal agent longer term if BP remains elevated. Metoprolol was increased during his stay. He plans to resume monitor as he resumes CPAP and exercise. Day of Discharge Assessment Today the patient voices readiness for discharge. They note improvement in mood and deny thoughts to harm self or others. Thoughts remain organized and they are improved from admission. There is no evidence of psychosis. They agree to take mediations as prescribed and keep follow-up appointments. They are stable for discharge to outpatient level of care. Transition of Care Transition Of Care Record: was reviewed with the patient Advance Directives Advance Directives Information Provided: Yes Advance Directives: No Mental Health Advance Directive: No Advance Directives on File: No Living Will: No Power of Heavy Equipment Service Technician: No Advance Directives Reason:: Declines as Mental Health Visit. Suicide Risk Level Suicide Risk Level Comments: Suicide risk at discharge is deemed low as the patient is no longer requiring 24-hr monitoring, has a safety plan, and is free of suicidal ideation at discharge. Risk Factors Assessment Male: Yes : Yes Do You Have Access To A Gun?: No Health Problems: Yes Mental Health Diagnoses: Yes Substance Use Disorders: Yes Previous Attempt: No Previous Psychiatric Hospitalization: No Protective Factors Assessment : Yes Responsible for Young Children: Yes Employed: No (unable to work d/t vision loss) Supportive Family: Yes Tobacco Cessation at Discharge Tobacco Cessation Medication Prescribed at Discharge: Not Applicable/Non-Smoker Total Time Total Time Spent: Greater Than 30 Minutes Total Time Includes: Examination of the patient, Discharge Planning and Medication Reconciliation Discharge Data Lab Results 08/06/22 08/06/22 08/06/22 21:55 21:55 22:00 WBC RBC Hgb Hct MCV MCH MCHC RDW Std Deviation RDW Coeff of Symone Plt Count MPV Immature Gran % (Auto) Neut % (Auto) Lymph % (Auto) [place]ax % (Auto) Eos % (Auto) Baso % (Auto) Neut # (Auto) Lymph # (Auto) [place] # (Auto) Eos # (Auto) Baso # (Auto) Immature Gran # (Auto) Sodium Potassium Chloride Carbon Dioxide Anion Gap BUN Creatinine Est Cr Clr Drug Dosing Est GFR ( Amer) Est GFR (Non-Af Amer) BUN/Creatinine Ratio Glucose Calcium Total Bilirubin AST ALT Alkaline Phosphatase Total Protein Albumin Globulin Albumin/Globulin Ratio TSH Urine Color Yellow Urine Appearance Clear Urine pH 6.5 Ur Specific [place] 1.004 Urine Protein Negative Urine Glucose (UA) Negative Urine Ketones Negative Urine Blood Negative Urine Nitrite Negative Urine Bilirubin Negative Urine Urobilinogen Negative Ur Leukocyte Esterase Negative Salicylates Urine Opiates Screen Neg Ur Methadone, Qual Neg Acetaminophen Urine Barbiturates Neg Ur Phencyclidine (PCP) Neg U Amphetamin/Meth Scrn Neg MDMA (Ecstasy) Screen Neg U Benzodiazepines Scrn Neg Ur Cocaine Metabolite Neg U Marijuana (THC) Screen Neg Ethyl Alcohol mg/dL SARS-CoV-2, RNA, NAAT NEGATIVE 08/06/22 08/06/22 08/06/22 22:17 22:17 22:17 WBC 5.62 RBC 4.68 Hgb 15.2 Hct 41.9 MCV 89.5 MCH 32.5 MCHC 36.3 H RDW Std Deviation 41.7 RDW Coeff of Symone 12.7 Plt Count 222 MPV 10.5 Immature Gran % (Auto) 1.2 Neut % (Auto) 66.4 Lymph % (Auto) 21.9 [place] % (Auto) 5.5 Eos % (Auto) 3.4 Baso % (Auto) 1.6 Neut # (Auto) 3.73 Lymph # (Auto) 1.23 [place] # (Auto) 0.31 Eos # (Auto) 0.19 Baso # (Auto) 0.09 Immature Gran # (Auto) 0.07 H Sodium 136 Potassium 3.0 L Chloride 101 Carbon Dioxide 25 Anion Gap 10 BUN 14 Creatinine 0.79 Est Cr Clr Drug Dosing 141.5 Est GFR ( Amer) 123.9 Est GFR (Non-Af Amer) 106.9 BUN/Creatinine Ratio 17.7 Glucose 117 H Calcium 9.3 Total Bilirubin 0.5 AST 24 ALT 45 Alkaline Phosphatase 34 Total Protein 6.7 Albumin 4.4 Globulin 2.3 L Albumin/Globulin Ratio 1.9 TSH 2.381 Urine Color Urine Appearance Urine pH Ur Specific [place] Urine Protein Urine Glucose (UA) Urine Ketones Urine Blood Urine Nitrite Urine Bilirubin Urine Urobilinogen Ur Leukocyte Esterase Salicylates Urine Opiates Screen Ur Methadone, Qual Acetaminophen Urine Barbiturates Ur Phencyclidine (PCP) U Amphetamin/Meth Scrn MDMA (Ecstasy) Screen U Benzodiazepines Scrn Ur Cocaine Metabolite U Marijuana (THC) Screen Ethyl Alcohol mg/dL SARS-CoV-2, RNA, NAAT 08/06/22 08/06/22 22:17 22:17 WBC RBC Hgb Hct MCV MCH MCHC RDW Std Deviation RDW Coeff of Symone Plt Count MPV Immature Gran % (Auto) Neut % (Auto) Lymph % (Auto) [place] % (Auto) Eos % (Auto) Baso % (Auto) Neut # (Auto) Lymph # (Auto) [place] # (Auto) Eos # (Auto) Baso # (Auto) Immature Gran # (Auto) Sodium Potassium Chloride Carbon Dioxide Anion Gap BUN Creatinine Est Cr Clr Drug Dosing Est GFR ( Amer) Est GFR (Non-Af Amer) BUN/Creatinine Ratio Glucose Calcium Total Bilirubin AST ALT Alkaline Phosphatase Total Protein Albumin Globulin Albumin/Globulin Ratio TSH Urine Color Urine Appearance Urine pH Ur Specific [place] Urine Protein Urine Glucose (UA) Urine Ketones Urine Blood Urine Nitrite Urine Bilirubin Urine Urobilinogen Ur Leukocyte Esterase Salicylates < 3.0 L Urine Opiates Screen Ur Methadone, Qual Acetaminophen < 3 L Urine Barbiturates Ur Phencyclidine (PCP) U Amphetamin/Meth Scrn MDMA (Ecstasy) Screen U Benzodiazepines Scrn Ur Cocaine Metabolite U Marijuana (THC) Screen Ethyl Alcohol mg/dL 81.8 H SARS-CoV-2, RNA, NAAT Hospital Course (1) Major depression: (2) Alcohol abuse: (3) Hypertension: (4) REM sleep behavior disorder: (5) Periodic limb movement disorder: (6) Severe obstructive sleep apnea: Plan 08/10/2022: needs family and/or couples therapy around parenting, possible CBTi referral. Klonopin 1 mg trial for REM sleep disorder/ongoing anxiety and sleep disruptions. Effexor XR now in am to also assist sleep architecture. Consideration for Pristiq on an outpatient basis. 08/09/2022: continue supportive counseling around ETOH use, he feels he can stop when he wants and plans to abstain on discharge. No criteria for rehab. BP improved with metoprolol titration. Continue shifting Effexor XR to am, could be converted to Pristiq as outpatient (non formulary) if ongoing concerns about discontinuation. 08/08/2022: patient agrees to titrate metoprolol as beta blockers as a class helpful for anxiety/tachy, continue shift Effexor XR toward lunch then am. 08/07/2022: The patient was admitted to the [facility] ([facility] inpatient mental health unit) on q15 min checks (behavioral with suicide precautions) for safety. The patient will participate in group, recreational, and milieu therapies and will be offered additional individual and family sessions as clinically appropriate. K+ was repleted in ED. AWSS procotol with prn Ativan, consider Neurontin loading. Patient has HTN at baseline and doesn't appear to be progressing with withdrawal, some improvement following 1 time dose of clonidine . Will continue Klonopin as for sleep related disorder though expressed to patient that I would suggest trial of shifting his dose of Effexor XR as antidepressants can disrupt sleep stages. He was agreeable to this, hasn't taken higher dose of Effexor and is ambivalent re: it given significant discontinuation syndrome. He is agreeable to referral to outpatient dual dx IOP. Mental Health & Subst Abuse Tx Psychiatrist Name of Psychiatrist: Rosy Ramos PA-C Psychiatrist's Date Of Appointment With Psychiatric Provider: 08/28/2022 Time of Appointment with Psychiatrist: 12:45pm Psychiatric Appointment Comment: 1950 Therapist Name of Therapist: [facility] The[facility]ist's Therapy Appointment Comment: [address], [place] [address] Computing Consultant Name of Computing Consultant: None Post Discharge Appointments Primary Care Physician Name Of Family Doctor/PCP: [facility] [address] - Dr. Lo Primary Care Time of Appointment with PCP: 8:45 AM Provider Appointment Comment: [address], [place] [address] Smoking Cessation Counseling Tobacco Cessation Medication Prescribed at Discharge: Not Applicable/Non-Smoker Contact Information Discharge Discharge Address: [facility] [address], [place] [address] Discharge Plan Discharge Items Patient Disposition: Home - Self-Care Reason For Visit: SUICIDAL IDEATION WITH MAJOR DEPRESSION Discharge Diagnosis: Major depressive disorder with anxious distress Condition on Discharge: Good Activity: Resume your previous activity Non-emergency contact: Primary Care Provider, Psychiatrist and Therapist Call non-emergency contact if: you have any medication questions and your symptoms worsen Follow-up/Referrals: Lora Lo [Primary Care Provider] - Diet: Regular Addtl Attending Provider Instructions: SPECIAL CARE INSTRUCTIONS: 1. Follow through with your scheduled aftercare appointments. If unable to keep an appointment, please call to reschedule. 2. Take your medication only as prescribed. Medication should not be changed or stopped without the approval of your doctor. In the event of worsening symptoms or concerns about side effects, contact your doctor immediately. 3. Utilize new healthy coping skills, anger management skills, and stress management skills learned during your hospitalization. Journal feelings and process them with a support person. Identify stressors or situations that may result in relapse, deterioration or inappropriate behaviors and develop a plan to deal with those issues. 4. If your coping skills are ineffective and you are in crisis, contact your outpatient providers for direction. If unable to reach your providers, please call the [facility] CRISIS LINE AT , go to the [facility] walk-in center at [address], [address], [place], or go to the closest Emergency Room. 5. Avoid alcohol and un-prescribed drugs. 6. You have been provided with the Mental Health Advance Directives Pamphlet for your review. 7. Your condition is stable for discharge to outpatient level of care, but recovery is an ongoing process. Ifthoughts to harm yourself or others return, follow the safety plan developed during your stay. Planning for a safe return home includes securing weapons. Our treatment team recommends weaponsbe removed from the home until your outpatient provider reassesses your progress. In rare cases where the items themselvescannot be removed, guns and ammunitionshould be secured separatelyand keys stored by a reliable personoutside of the home. If you were admitted on an involuntary commitment, the police or other legal authorities may be involved in this process. AFTERCARE APPOINTMENTS: * Please call your insurance company prior to your scheduled appointment to confirm your aftercare providers are covered. Take your insurance information to your appointments. WHO TO CALL AND WHEN: Medical Emergencies: For questions or emergencies related to your hospital stay, please contact the Inpatient Behavioral Health Unit at [phone]. A dock operations supervisor is on-call 09/02 for the Behavioral Health Unit for emergencies At any time you feel your situation is an emergency, you may also call 911 immediately. Pending Studies at Discharge: No Stand-Alone Forms: My [facility] [employer], Smoking Cessation Medications and DC Order Prescriptions: New metoprolol succinate 50 mg Tablet Extended Release 24 Hr 50 mg PO HS Qty: 30 0RF clonazepam 1 mg Tablet 1 mg PO HS Qty: 30 0RF venlafaxine 150 mg Capsule,Extended Release 24hr 150 mg PO DAILY Qty: 1 0RF Continued chlorthalidone 25 mg tablet 50 mg PO HS enalapril maleate 20 mg tablet 20 mg PO HS Rachel 128 1 drp ophthalmic (eye) QID Discontinued metoprolol succinate 25 mg tablet extended release 24 hr 25 mg PO HS venlafaxine 150 mg capsule,extended release 24hr 150 mg PO HS sertraline 50 mg tablet 50 mg PO HS clonazepam [Klonopin] 0.5 mg tablet 0.5 mg PO HS Discharge Orders: Discharge Order (Routine); Ordered 08/11/22 Ordered By: Sosa Mcclure Admission Data Admit Date/Time: 08/07/22 02:08 Attending Provider: Sosa Mcclure Admit Provider: Sosa Mcclure Primary Care Provider: Lora Lo Other Interventions: Discharge Summary Assessment (RN) Last Done: 08/11/22 12:35 PSY Interdisciplinary Discharge Planning Last Done: 08/11/22 12:36 Coding Level of Care Code 14224 D/C day mgmt > 30 min Diagnoses Major depression F32.9 Alcohol abuse F10.10 Hypertension I10 Hypertension type: unspecified REM sleep behavior disorder G47.52 Periodic limb movement disorder G47.61 Severe obstructive sleep apnea G47.33
== END 2022-08-11 14:15 | disposition home or self-care (01) | DRG 881 ==
LOC: ED 21:23 → 3S 08-07 01:30